=== PATIENT | female | born 1945 | race Caucasian/White ===

== ENCOUNTER → 2024-09-29 | Outpatient (CLI) | payer MEDICARE, BC, SELFPAY ==
--- NOTE | 2024-09-29 17:00 | XR_ITS ---
Examination: CT chest, without intravenous contrast. Sagittal and coronal 2-D reconstructions. Exam date and time: September 29, 2024, 1717 hours Comparison October 16, 2022 INDICATIONS: Wedge-shaped parenchymal disease in the right upper lobe contiguous with the right mediastinum, measuring at least 5 cm in dimension on CT chest October 16, 2022 CTDI:vol (mGy) 4.77 DLP: (mGycm) 109 Technique: Multiple 3.0 mm axial sections of the chest to been obtained. Bone and lung density settings are obtained. Sagittal and coronal 2-D reconstructions have been obtained. Low dose protocols were performed. One or more of the following dose reduction techniques were used; automated exposure control, adjustment of the mA and/or KV according to patient size, use of iterative reconstruction technique. Findings: Bilateral thyroid nodules, the largest on the right 10 mm No thoracic aortic aneurysm dilatation Pulmonary artery segments are nonenlarged No interval paratracheal tracheobronchial bronchopulmonary adenopathy Extensive wedge-shaped scarring in the right upper lobe is stable Bilateral pulmonary nodules again noted New 2 mm pulmonary nodule anterior segment left upper lobe image 104 No visualized liver or splenic lesion No pancreatic mass Partial visualization 3.4 cm left renal cyst IMPRESSION: Stable wedge-shaped scarring in the right upper lobe New 2 mm pulmonary nodule anterior segment left upper lobe, suggests continued 6 month follow-up CT chest without contrast
== END | disposition home or self-care (01) ==
LOC: CCTX 16:44
PROVIDERS: PCP Physician Assistant; Referring Provider Physician Assistant; Visit Provider Physician Assistant
DX: R91.8 Other nonspecific abnormal finding of lung field (principal); C34.90 Malignant neoplasm of unspecified part of unspecified bronchus or lung
CPT/HCPCS: 71250

== ENCOUNTER → 2025-03-23 | Outpatient (CLI) | payer MEDICARE, BC, SELFPAY ==
--- NOTE | 2025-03-23 09:30 | XR_ITS ---
Examination: CT chest, without intravenous contrast. Sagittal and coronal 2-D reconstructions. Exam date and time: March 23, 2025, 0912 hours INDICATIONS: Diagnosis COPD, wedge-shaped parenchymal disease in the right upper lobe, new 2 mm pulmonary nodule in the left upper lobe on CT chest September 29, 2024 CTDI:vol (mGy) 4.99 DLP: (mGycm) 199 Technique: Multiple 3.0 mm axial sections of the chest to been obtained. Bone and lung density settings are obtained. Sagittal and coronal 2-D reconstructions have been obtained. Low dose protocols were performed. One or more of the following dose reduction techniques were used; automated exposure control, adjustment of the mA and/or KV according to patient size, use of iterative reconstruction technique. Findings: 8 mm right thyroid nodule Thoracic aortic calcification no aneurysmal dilatation Right hilar adenopathy on this noncontrast study Pulmonary artery segments are not enlarged COPD with areas of airspace distraction Stable parenchymal disease in the posterior right upper lobe Stable bilateral pulmonary nodules No new pulmonary nodules No visualized liver or splenic lesion Probable parapelvic left renal cyst, recommend renal sonography follow-up IMPRESSION: COPD Suspicious for right hilar adenopathy, consider repeat CT chest post intravenous contrast Stable bilateral pulmonary nodules
== END | disposition home or self-care (01) ==
PROVIDERS: PCP Physician Assistant; Referring Provider Specialist; Visit Provider Specialist
DX: R91.8 Other nonspecific abnormal finding of lung field (principal); J44.9 Chronic obstructive pulmonary disease, unspecified
CPT/HCPCS: 71250

== ENCOUNTER 2025-04-07 17:46 | Emergency (ER) | payer MEDICARE, BC, SELFPAY ==
[2025-04-07 17:46] VITALS: BMI 16.9
[2025-04-07 18:04] VITALS: BP 116/59; PULSE 83; RESP 18; TEMP 37.3; O2SAT 98
--- NOTE | 2025-04-07 18:47 | XR_ITS ---
EXAMINATION: AP chest single view TECHNIQUE: AP upright portable chest single view Date and time: April 07, 2025, 1906 hours, comparison December 16, 2023 INDICATIONS: Coughing shortness of breath beginning 2 days ago FINDINGS: COPD with prominent hyperexpansion Normal heart size Prominent right hilum Parenchymal disease in the right upper lobe which is likely scar formation IMPRESSION: COPD with significant hyperexpansion Parenchymal disease in the right upper lobe extending to the right hilar region which may be scarring versus atelectasis Recommend repeat CT chest with contrast to exclude an underlying right mediastinal lymphadenopathy producing atelectasis in the right upper lobe
--- NOTE | 2025-04-07 18:49 | XR_ITS ---
Examination: CT left hip, without contrast. CT pelvis without intravenous contrast 2-D sagittal reconstructions. 2-D coronal reconstructions. 3-D reconstructions. Date and time of exam: April 07, 2025, 1953 hours INDICATIONS: Onset left hip pain today CTDI: vol (mGy): 5.30 DLP: (mGycm): 191 Technique: Multiple 1.25 mm axial sections of the pelvis left hip have been obtained. 2-D sagittal and coronal reconstructions have been obtained. 3-D reconstructions have been obtained. Low dose protocols were performed. One or more of the following dose reduction techniques were used; automated exposure control, adjustment of the mA and/or KV according to patient size, use of iterative reconstruction technique. Findings: Significant osteopenia Mild narrowing hip joints bilaterally No right or left hip fracture or dislocation Subtle areas of sclerosis in bones of the pelvis and hips 2 mm right renal calculus No bowel obstruction Normal appendix Contracted urinary bladder IMPRESSION: Subtle areas of sclerosis involving the hips and pelvis Consider MRI pelvis follow-up pre and postcontrast to exclude osseous metastatic disease
--- NOTE | 2025-04-07 19:06 | PD.EDHIP ---
Lower Extremity Injury RME/HPI General Chief Complaint: Hip Injury/Pain Stated Complaint: left hip pain Time Seen by Provider: 04/07/25 18:47 Arrival date/time: 04/07/25 17:46 RME / HPI RME / HPI Narrative: Dr. Bardales?s Main ED Evaluation: 79yo female with a history of COPD on nocturnal oxygen, previous lung CA s/p chemotherapy and radiation in remission presenting with productive cough with green phlegm. No fever, chills, or diarrhea. Also noted marked left hip pain with weight bearing for one day in the absence of trauma or strenuous activity. PSH noncontributory. Related Data Home Medications ?Medication ?Instructions ?Recorded ?Confirmed albuterol sulfate 2.5 mg/3 mL 2.5 mg inhalation Q4H 10/16/22 10/16/22 (0.083 %) solution for nebulization ipratropium bromide 0.02 % 0.5 mg inhalation Q5H 10/16/22 10/16/22 solution for inhalation Previous Rx's ?Medication ?Instructions ?Recorded hydrocodone 5 mg-acetaminophen 325 1 tab PO Q8H PRN pain #20 tabs 04/07/25 mg tablet levofloxacin 500 mg tablet 500 mg PO Q24H #10 tabs 04/07/25 prednisone 20 mg tablet 40 mg PO QDAY 5 days #10 tabs 04/07/25 Allergies Allergy/AdvReac Type Severity Reaction Status Date / Time No Known Allergies Allergy Verified 04/07/25 17:50 Review of Systems Review of Systems Systems Reviewed: All systems reviewed, normal except as documented Past Medical History Past Medical History NEUROLOGIC: Negative Neurological Disorders CARDIAC: Positive Cardiac Disorders, Angina, Hypercholesterolemia and Edema; Negative Congestive Heart Failure RESPIRATORY: Positive Chronic Obstructive Pulmonary Disease (COPD), Asthma and Pneumonia GASTROINTESTINAL: Negative Gastrointestinal Disorders GENITOURINARY: Positive Renal Disease; Negative Genitourinary Disorders REPRODUCTIVE: Positive Previous Pregnancies (a2) MUSCULOSKELETAL: Positive Musculoskeletal Disorders (torn tendon right shoulder), Arthritis and Fibromyalgia ENT: Positive Deafness (left) ENDOCRINE: Negative Endocrine Disorders, Diabetes Mellitus Type 1 or Diabetes Mellitus Type 2 HEMATOLOGIC: Positive Blood Disorders and Anemia; Negative Sickle Cell Disease PSYCHO/SOCIAL: Positive Anxiety OTHER HISTORY: Positive Chemotherapy, Radiation Therapy, Chicken Pox, Measles and Cancer; Negative Autoimmune Disease Family History FAMILY HISTORY: Positive Family Respiratory Disorders (brother lung ca), Family Cardiac Disorders (parents and brothers CO), Family Gastrointestinal Problems (brother hep B) and Family Cancer (brother lung ca); Negative Family Psychiatric Problems, Family Surgery or Family Anesthesia Reaction Surgical History SURGICAL: Positive Cardiac Catheterization, Angiogram, Tonsillectomy and Adenoidectomy Social History SMOKING STATUS: Current some day smoker ED Exam Narrative Physical exam: GENERAL APPEARANCE: alert and oriented x 4, well-developed, well-nourished, nontoxic, complains of left hip pain, no acute distress VITALS: All vitals were reviewed and the pulse ox is 98% on room air, which is normal according to my interpretation. HEENT: Normocephalic, atraumatic; pupils equal, round, reactive to light; EOMI; mucous membranes pink, moist; oropharynx clear NECK: Supple LUNGS: Diminished lung sounds; no wheezes, no rales, no rhonchi HEART: Regular rate, regular rhythm; normal S1, S2; no murmurs ABDOMEN: non distended; normal BS; soft, no tenderness, no guarding, no rebound; no masses, no organomegaly, no hernia BACK: no CVA tenderness EXTREMITIES: atraumatic; no edema; minimal pain with internal/external rotation or axial loading, tenderness to the left greater trochanter region, no crepitus NEUROLOGIC: awake; alert and oriented x4; cranial nerves II-XII grossly intact; no focal sensory or motor deficits PSYCHIATRIC: appropriate mood and affect SKIN: warm, dry, normal color; no rashes Course Quality Measures none Orders Category Date Time Status CT hip LT wo con Stat Exams 04/07/25 18:49 Completed XR chest 1V portable Stat Exams 04/07/25 18:47 Completed CBC [CBC] Stat Lab 04/07/25 19:15 Completed CMP [Comprehensive Metabolic Panel] Stat Lab 04/07/25 19:15 Completed Urinalysis, C/S if Indicated Stat Lab 04/07/25 18:58 Completed Albuterol/Ipratr Rt Bouchra [Duoneb Rt Bouchra] Med 04/07/25 18:47 Discontinued 3 ml INH X1 ONE HYDROcodone*/APAP 5/325 [Eloy 5/325] Med 04/07/25 18:49 Discontinued 1 tab PO X1 ONE Vital Signs Vital signs: Vital Signs Temperature 99.1 F 04/07/25 18:04 Pulse Rate 83 04/07/25 18:04 Respiratory Rate 18 04/07/25 18:04 Blood Pressure 116/59 L 04/07/25 18:04 Pulse Oximetry (%) 98 04/07/25 18:04 Oxygen Delivery Method Room Air 04/07/25 18:04 Extremity Injury, Lower MDM Narrative MDM Narrative:: Scribe Attestation: 04/07/25 - Taya Meraz am scribing for and in the presence of Dr. Bardales. 79yo female with a history of COPD on nocturnal oxygen, previous lung CA s/p chemotherapy and radiation in remission presenting with productive cough with green phlegm. No fever, chills, or diarrhea. Also noted marked left hip pain with weight bearing for one day in the absence of trauma or strenuous activity. Please see PE findings. Lab markers demonstrate normal CBC. Chemistries with mild renal insufficiency. UA negative. CXR demonstrates COPD-like changes without definite infiltrate. CT of the hip failed to demonstrate evidence of acute fracture, but showed sclerosis of hips and pelvis suggestive of metastatic disease which may reflect recurrent lung CA. Discussed results at length with patient and recommendations included outpatient therapy for COPD exacerbation and MRI follow-up in the next 1-2 weeks. Patient advised to use a walker versus cane and avoid direct weight bearing. Precaution instructions issued. Dx; COPD exacerbation, left hip pain, left hip arthritis Patient data External records reviewed:: [facility] previous records (Per chart review, patient has no previous ED visits or admissions to this facility.) Clinical information provided by:: patient Social determinants that could affect healthcare access:: none Patient has the following chronic illnesses:: HLD, asthma How is presenting disease/condition affected by chronic disease/condition?: uneffected by Evaluation data The following diagnostics were reviewed and interpreted by me:: lab results and radiology exam(s) Lab and/or radiology exams considered but not ordered:: none Interpretation Summary: [facility] Signed Patient: THANH GARCIA. Record#: [id number] Birthdate: 1945 Age/Sex: 79 / F Location: [facility] Attending Dr: Ordering Physician: Zaid Blair DO Date of Service: 04/07/25 Procedure(s): XR chest 1V portable Accession Number(s): [id number] cc: Zaid Blair DO; Trung Barr MD~ EXAMINATION: AP chest single view TECHNIQUE: AP upright portable chest single view Date and time: April 07, 2025, 1906 hours, comparison December 16, 2023 INDICATIONS: Coughing shortness of breath beginning 2 days ago FINDINGS: COPD with prominent hyperexpansion Normal heart size Prominent right hilum Parenchymal disease in the right upper lobe which is likely scar formation IMPRESSION: COPD with significant hyperexpansion Parenchymal disease in the right upper lobe extending to the right hilar region which may be scarring versus atelectasis Recommend repeat CT chest with contrast to exclude an underlying right mediastinal lymphadenopathy producing atelectasis in the right upper lobe Dictated By: Trung Barr MD Signed By: <Electronically signed by Trung Barr MD in > 04/07/251933 [facility] Report Signed Patient: THANH GARCIA. Record#: [id number] Birthdate: 1945 Age/Sex: 79 / F [facility] Attending Dr: Ordering Physician: Zaid Blair DO Date of Service: 04/07/25 Procedure(s): CT hip LT wo con Accession Number(s): [id number] cc: Zaid Blair DO; Trung Barr MD; Eunice Callaway PA-C~ Examination: CT left hip, without contrast. CT pelvis without intravenous contrast 2-D sagittal reconstructions. 2-D coronal reconstructions. 3-D reconstructions. Date and time of exam: April 07, 2025, 1954 hours INDICATIONS: Onset left hip pain today CTDI: vol (mGy): 5.30 DLP: (mGycm): 191 Technique: Multiple 1.25 mm axial sections of the pelvis left hip have been obtained. 2-D sagittal and coronal reconstructions have been obtained. 3-D reconstructions have been obtained. Low dose protocols were performed. One or more of the following dose reduction techniques were used; automated exposure control, adjustment of the mA and/or KV according to patient size, use of iterative reconstruction technique. Findings: Significant osteopenia Mild narrowing hip joints bilaterally No right or left hip fracture or dislocation Subtle areas of sclerosis in bones of the pelvis and hips 2 mm right renal calculus No bowel obstruction Normal appendix Contracted urinary bladder IMPRESSION: Subtle areas of sclerosis involving the hips and pelvis Consider MRI pelvis follow-up pre and postcontrast to exclude osseous metastatic disease Dictated By: Trung Barr MD Signed By: <Electronically signed by Trung Barr MD in [place]> 04/07/25 2110 Medications / Prescriptions Medications or Prescriptions considered but not ordered:: none Medication administrations:: Medication Administration History Discontinued Medications Hydrocodone Bitart/Acetaminophen (Hydrocodone/Apap 5/325 Tablet) 1 tab PO X1 ONE Stop: 04/07/25 18:50 Last Admin: 04/07/25 19:07 Dose: 1 tab Documented By: EB Albuterol/Ipratropium (Albuterol/Ipratropium (Duoneb) Rt Bouchra 3 Ml Nebu) 3 ml INH X1 ONE Stop: 04/07/25 18:48 Last Admin: 04/07/25 19:27 Dose: 3 ml Documented By: MW see above Consultations Consultation(s) initiated? (list below): No Diagnosis Extremity Injury, Lower Differential Diagnosis: fracture of hip and other (musculoskeletal pain, bronchitis, pneumonia) Most likely diagnosis given after review of the tests above:: see clinical impression below Admission Indicated Admission indicated?: not indicated Admission Request Was there a request for admission?: No Disposition Plan Disposition Plan: Discharge Discharge Attestation Discharge Attestation: The patient and all family members were given an opportunity to ask questions and understood the discharge instructions. Discharge instructions specifically effects, indications for sooner follow up or return to the emergency department, and the expected course of current diagnosis. Patient condition: Stable Discharge Plan Plan Patient Disposition: HOME (Self Care) Discharge Disposition comment: Stable Prescriptions/Referrals Prescriptions/Med Rec: New hydrocodone-acetaminophen 5-325 mg tablet 1 tab PO Q8H MDD 3 TAB PRN (Reason: pain) Qty: 20 0RF prednisone 20 mg tablet 40 mg PO QDAY 5 Days Qty: 10 0RF Taper: Prednisone Taper 40 mg DAILY for 5 Days and 0 Hour levofloxacin 500 mg tablet 500 mg PO Q24H Qty: 10 0RF No Action albuterol sulfate 2.5 mg /3 mL (0.083 %) Solution For Nebulization 2.5 mg INHALATION Q4H Rx Instructions: [id number] ipratropium bromide 0.02 % Solution 0.5 mg INHALATION Q5H Rx Instructions: q5 hrs mixed with albuterol Referrals: Eunice Callaway PA-C [Primary Care Provider, [facility]] - In 1 week Problem List Clinical Impression: Acute exacerbation of chronic obstructive pulmonary disease, Arthritis of left hip Patient/Caregiver Discharge Instructions Discharge Activity: walk with walker only and activity as tolerated Education Materials: Arthritis: Exercise, COPD Meds Additional Instructions: Ice compresses alternate with warm moist heat to the left hip. Home nebulizer every 4 hours while awake. Additional medications as directed. Follow-up with primary care for referral for MRI of the pelvis/hips to rule out neoplastic process. Return if worsening. Print Language: Slovak Stand Alone Forms: [facility] Award Info., Patient Portal Info Letter
[2025-04-07] MEDS: HYDROcodone/APAP 5/325 TABLET 1 TAB PO (19:07)
[2025-04-07 19:24] LABS: Collection Type, Urine Clean Catch
[2025-04-07] MEDS: ALBUTEROL/IPRATROPIUM (Duoneb) RT SOL 3 ML NEBU INH (19:27)
[2025-04-07 19:29] VITALS: PULSE 85; RESP 20; O2SAT 99
[2025-04-07 19:31] LABS: Bilirubin,Urine Negative (Negative); Blood,Urine Trace (Negative); Clarity,Urine Clear (Clear/Hazy); Color,Urine Colorless (Lt Yel-Yel); Culture Indicated,Urine Not Indicated; Glucose, Urine Negative (Negative); Ketones,Urine Trace (Negative); Leukocyte Esterase,Urine Negative (Negative); Nitrite,Urine Negative (Negative); PH,Urine 6.5 (5.0-7.0); Protein,Urine Negative (Neg - Trace); RBC,Urine 1 /hpf (0-3); Specific Gravity,Urine 1.007 (1.001-1.035); Squamous Epithelial Cell,Urine 2 /hpf (0-5); Urobilinogen,Urine Negative mg/dL (0.0-1.0); WBC,Urine 1 /hpf (0-5)
[2025-04-07 19:33] LABS: Basophils # (Auto) 0.0 Thou/mm3 (0.0-0.2); Basophils % (Auto) 0 % (0-2.5); Eosinophils # (Auto) 0.0 Thou/mm3 (0.0-0.5); Eosinophils % (Auto) 0 % (0-10); Hematocrit 37.1 % (36.0-46.0); Hemoglobin 12.2 g/dL (12.0-16.0); Immature Granulocytes Auto 0.03 Thou/mm3 (0.00-0.00); Lymphocytes # (Auto) 1.0 Thou/mm3 (1.0-4.8); Lymphocytes % (Auto) 12 % (10-50); Mean Corpuscular HGB Conc 32.9 g/dl (31.0-37.0); Mean Corpuscular Hemoglobin 31.4 pg (25.0-35.0); Mean Corpuscular Volume 95 fL (80-100); Monocytes # (Auto) 0.8 Thou/mm3 (0.0-0.8); Monocytes % (Auto) 9 % (0-12); Neutrophils # (Auto) 6.8 Thou/mm3 (1.8-7.7); Neutrophils % (Auto) 79 % (37-80); Nucleated Red Blood Cell # 0.00 Thou/mm3 (0.00-0.00); Nucleated Red Blood Cell % 0 /100 WBC (0); Platelet Count 197 Thou/mm3 (140-440); RDW Standard Deviation 54.8 fL (36.4-46.3); Red Blood Count 3.89 Miln/mm3 (4.00-5.20); White Blood Count 8.7 Thou/mm3 (3.6-11.0)
[2025-04-07 19:43] LABS: Alanine Aminotransferase 19 U/L (10-49); Albumin, Serum 4.7 gm/dL (3.4-4.8); Albumin/Globulin Ratio 1.7 (1.2-2.2); Alkaline Phosphatase 78 U/L (46-116); Anion Gap 9 (7-16); Aspartate Amino Transferase 21 U/L (0-34); BUN/Creatinine Ratio 19 Ratio (12-20); Bilirubin,Total 0.5 mg/dL (0.3-1.2); Blood Urea Nitrogen 17 mg/dL (9-23); Calcium 9.3 mg/dL (8.3-10.6); Calcium (Corrected) 9.3 mg/dL (8.5-10.1); Carbon Dioxide 28.5 mMol/L (20.0-31.0); Chloride 107 mMol/L (98-107); Creatinine (Component) 0.9 mg/dL (0.6-1.3); Estimated Creatinine Clearance 38.1 mL/min (>60); Globulin 2.7 gm/dL (2.3-3.5); Glucose 100 mg/dL (74-106); Osmolality,Calculated 288 (275-295); Potassium 4.3 mMol/L (3.4-5.1); Sodium 144 mMol/L (136-145); Total Protein 7.4 gm/dL (5.7-8.2); eGFR > 60 See Note
--- NOTE | 2025-04-08 00:39 | PC.NURSE ---
CALLED PATIENT IN THE LOBBY NO ANSWER RECIEVED.
--- NOTE | 2025-04-08 00:57 | PC.NURSE ---
PATIENT LEFT WITHOUT DISCHARGE PAPERWORK.
== END 2025-04-08 00:59 | disposition home or self-care (01) ==
PROVIDERS: Emergency Provider Emergency Medicine; PCP Physician Assistant
DX: J44.1 Chronic obstructive pulmonary disease with (acute) exacerbation (principal); M16.12 Unilateral primary osteoarthritis, left hip; M89.8X0 Other specified disorders of bone, multiple sites; F17.210 Nicotine dependence, cigarettes, uncomplicated
CPT/HCPCS: 36415; 71045; 73700; 80053; 81001; 85025; 94640; 99284; A9270

== ENCOUNTER 2025-04-14 10:14 | Emergency (ER) | payer MEDICARE, BC, SELFPAY ==
[2025-04-14 10:25] VITALS: BP 153/70; PULSE 76; RESP 19; TEMP 37; O2SAT 93
[2025-04-14 10:31] VITALS: PULSE 76; O2SAT 93; BMI 16.9
--- NOTE | 2025-04-14 11:21 | PD.EDRME ---
Rapid Medical Screening Exam RME Arrival date/time: 04/14/25 10:14 Time Seen by Provider: 04/14/25 11:13 Vital signs: Vital Signs Temperature 98.6 F 04/14/25 10:25 Pulse Rate 76 04/14/25 10:25 Respiratory Rate 19 04/14/25 10:25 Blood Pressure 153/70 H 04/14/25 10:25 Pulse Oximetry (%) 93 L 04/14/25 10:25 Oxygen Delivery Method Room Air 04/14/25 10:25 RME Narrative: 79-year-old female presents to the ER complaining of migrating left leg pain which started in her hip however now it is extending to her lower leg after being seen here about a week ago placed on steroids and antibiotics which she reports improvement of her shortness of breath however the leg pain has continued to worsen. Denies fever, trauma. Patient states she is able to hobble around her house. I briefly performed a screening evaluation to initiate work-up and expedite care. Complete history, physical exam, and plan of care is deferred to the provider in the main ED. Exam: Head: Normocephalic, atraumatic. Respiratory: Normal effort. No respiratory distress or accessory muscle use. Neuro: Speech normal. Skin: Warm, dry, normal color. Psych: Pleasant. Normal affect. Cooperative. Clinical Impression: Left leg pain of unclear etiology
--- NOTE | 2025-04-14 11:23 | XR_ITS ---
Examination: Duplex scan of the lower extremity, unilateral left Date and time of exam: 04/14/2025 at 11:46 a.m. CLINICAL INDICATION: Left lower extremity pain and warmth, rule out DVT Technique: Duplex scan of the extremity veins using B-mode/grayscale imaging and Doppler spectral analysis and color flow Attention is directed to internal echogenicity, compression and augmentation involving these veins, color flow assessment, spectral analysis Findings: Major deep venous structures in the extremity demonstrate normal course and caliber. There is no evidence of deep vein thrombosis. Normal color flow and spectral analysis There is normal compressibility seen involving the entire deep venous system left lower extremity. There is also normal augmentation in most all of the left lower extremity veins, however when the technologist attempted to perform augmentation on the left common femoral vein and greater saphenous vein, the patient refused and then would not let the technologist finish the exam. Impression: Negative for DVT.. 2. Near the end of the exam the patient refused to cooperate and then would not let the technologist finish the exam completely however I would estimate that at least 95% of the exam was performed, and entirely normal.
--- NOTE | 2025-04-14 11:30 | XR_ITS ---
Examination: CT lumbar spine, without contrast. 2-D sagittal reconstructions. 2-D coronal reconstructions. 3-D reconstructions. Date and time of exam: April 14, 2025, 1213 hours INDICATIONS: Back pain radiating down the left leg beginning 2 days ago CTDI: vol (mGy): 11.8 DLP: (mGycm): 301 Technique: Multiple 1.25 mm axial sections of the lumbar spine without intravenous contrast have been obtained. 2-D sagittal and coronal reconstructions have been obtained. 3-D reconstructions have been obtained. Low dose protocols were performed. One or more of the following dose reduction techniques were used; automated exposure control, adjustment of the mA and/or KV according to patient size, use of iterative reconstruction technique. Findings: Severe osteopenia Mixed subtle sclerotic areas involving all visualized osseous structures Advanced degenerative disc disease L4-L5 Moderate lumbar spondylosis Lumbar pedicles, laminae, transverse posterior spinous processes intact Incidental note 4 mm soft calcification posterior left kidney and mild to moderate left hydronephrosis L5-S1 no disc protrusion L4-L5 moderate overall spinal stenosis, axial image 80, 4 mm central lumbar disc bulge, facet arthropathy and thickening of ligamentum flavum circumferentially narrowing the thecal sac with moderate left L4 ganglionic compression L4-L5 moderate overall spinal stenosis, 6 mm central lumbar disc bulge, facet arthropathy and thickening ligamentum flavum with mild right L3 ganglionic compression L2-L3 no disc protrusion, small foraminal disc bulges L1-L2 no disc protrusion, small foraminal disc bulges IMPRESSION: L4-L5, L3-L4 moderate overall spinal stenosis as above including moderate left L4 mild right L3 ganglionic compression
[2025-04-14 11:42] LABS: Basophils # (Auto) 0.0 Thou/mm3 (0.0-0.2); Basophils % (Auto) 0 % (0-2.5); Eosinophils # (Auto) 0.2 Thou/mm3 (0.0-0.5); Eosinophils % (Auto) 3 % (0-10); Hematocrit 37.6 % (36.0-46.0); Hemoglobin 12.6 g/dL (12.0-16.0); Immature Granulocytes Auto 0.02 Thou/mm3 (0.00-0.00); Lymphocytes # (Auto) 1.2 Thou/mm3 (1.0-4.8); Lymphocytes % (Auto) 15 % (10-50); Mean Corpuscular HGB Conc 33.5 g/dl (31.0-37.0); Mean Corpuscular Hemoglobin 31.4 pg (25.0-35.0); Mean Corpuscular Volume 94 fL (80-100); Monocytes # (Auto) 0.6 Thou/mm3 (0.0-0.8); Monocytes % (Auto) 7 % (0-12); Neutrophils # (Auto) 5.9 Thou/mm3 (1.8-7.7); Neutrophils % (Auto) 75 % (37-80); Nucleated Red Blood Cell # 0.00 Thou/mm3 (0.00-0.00); Nucleated Red Blood Cell % 0 /100 WBC (0); Platelet Count 264 Thou/mm3 (140-440); RDW Standard Deviation 53.0 fL (36.4-46.3); Red Blood Count 4.01 Miln/mm3 (4.00-5.20); White Blood Count 7.9 Thou/mm3 (3.6-11.0)
--- NOTE | 2025-04-14 12:17 | PD.EDADULT ---
ED General RME/HPI General Stated complaint: LEG PAIN Time Seen by Provider: 04/14/25 11:13 Arrival date/time: 04/14/25 10:14 RME / HPI RME / HPI narrative: 79-year-old female presents to the ER complaining of migrating left leg pain which started in her hip however now it is extending to her lower leg after being seen here about a week ago placed on steroids and antibiotics which she reports improvement of her shortness of breath however the leg pain has continued to worsen. Denies fever, trauma. Patient states she is able to hobble around her house. I briefly performed a screening evaluation to initiate work-up and expedite care. Complete history, physical exam, and plan of care is deferred to the provider in the main ED. Exam: Head: Normocephalic, atraumatic. Respiratory: Normal effort. No respiratory distress or accessory muscle use. Neuro: Speech normal. Skin: Warm, dry, normal color. Psych: Pleasant. Normal affect. Cooperative. Impression: Left leg pain of unclear etiology Related Data Home Medications ?Medication ?Instructions ?Recorded ?Confirmed albuterol sulfate 2.5 mg/3 mL 2.5 mg inhalation Q4H 10/16/22 10/16/22 (0.083 %) solution for nebulization ipratropium bromide 0.02 % 0.5 mg inhalation Q5H 10/16/22 10/16/22 solution for inhalation Previous Rx's ?Medication ?Instructions ?Recorded hydrocodone 5 mg-acetaminophen 325 1 tab PO Q8H PRN pain #20 tabs 04/07/25 mg tablet levofloxacin 500 mg tablet 500 mg PO Q24H #10 tabs 04/07/25 gabapentin 100 mg capsule 100 mg PO BID 1 week #14 caps 04/14/25 Allergies Allergy/AdvReac Type Severity Reaction Status Date / Time No Known Allergies Allergy Verified 04/14/25 10:31 ED Exam Narrative Physical exam: Physical Exam: GENERAL: Awake, answering questions appropriately, appears stated age HEENT: NC/AT. Moist mucosa. PERRLA/EOMI. CARDIO: Heart RRR, no obvious murmurs, no JVD. PULM: No coughing or visible SOB. Lungs CTA B/L. GI: Abdomen soft, NT/ND, +BS. SKIN/MSK/EXT: Left lower extremity has discoloration of the distal left, phalanges. No wounds/rashes/edema/amputations noted. +1 Pedal pulses present on the left compared to +2 on the right. NEURO: Oriented x3, Moves extremities x4, no focal neurologic deficits noted. Course Quality Measures none Orders Category Date Time Status CT lumbar spine wo con Stat Exams 04/14/25 11:30 Completed US venous duplex LE LT Stat Exams 04/14/25 11:23 Completed CBC Stat Lab 04/14/25 11:31 Completed CMP [Comprehensive Metabolic Panel] Stat Lab 04/14/25 12:04 Completed HYDROcodone/APAP 10/325 [[place] 10/325] Med 04/14/25 11:30 Discontinued 1 tab PO X1 ONE Ondansetron Odt [Zofran Odt] Med 04/14/25 11:31 Discontinued 4 mg PO X1 ONE Vital Signs Vital signs: Vital Signs Temperature 98.6 F 04/14/25 10:25 Pulse Rate 76 04/14/25 10:25 Respiratory Rate 19 04/14/25 10:25 Blood Pressure 153/70 H 04/14/25 10:25 Pulse Oximetry (%) 93 L 04/14/25 10:25 Oxygen Delivery Method Room Air 04/14/25 10:25 Discharge Plan Plan Patient Disposition: HOME (Self Care) Patient condition on transfer: Stable Prescriptions/Referrals Prescriptions/Med Rec: New gabapentin 100 mg capsule 100 mg PO BID 7 Days Qty: 14 0RF No Action hydrocodone-acetaminophen 5-325 mg tablet 1 tab PO Q8H MDD 3 TAB PRN (Reason: pain) Qty: 20 0RF levofloxacin 500 mg tablet 500 mg PO Q24H Qty: 10 0RF albuterol sulfate 2.5 mg /3 mL (0.083 %) Solution For Nebulization 2.5 mg INHALATION Q4H Rx Instructions: [id number] ipratropium bromide 0.02 % Solution 0.5 mg INHALATION Q5H Rx Instructions: q5 hrs mixed with albuterol Problem List Clinical Impression: Lumbar radiculopathy Patient/Caregiver Discharge Instructions Education Materials: Sciatica Additional Instructions: Please take gabapentin 100mg by mouth twice a day for lumbar radiculopathy Follow-up with your PCP within 5 days - ask for a cardiology referral due to your peripheral artery disease Print Language: Estonian Stand Alone Forms: [employer] Award Info., Patient Portal Info Letter MDM Narrative [facility] hospital course (for use when minimal MDM required): HPI: 79-year-old female with past medical history of COPD, spinal stenosis, lumbar radiculopathy, peripheral artery disease presenting to the ED on 04/14 for left hip and fibular area tenderness. She denies having any traumatic events or falls and was recently in the emergency room for shortness of breath, breathing treatments and prednisone and largely improved. Patient denies having any respiratory symptoms at this time. She states that her left lower extremity has felt more swollen than normal but denies having any redness. 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 She denies having any pain when ambulating; she uses a walking stick when ambulating at home. On examination please refer to the physical exam above; patient presented hypertensive 150/70, heart rate of 76, respiratory rate of 19, afebrile satting 93 on room air. Pertinent lab findings included CBC without any acute findings, CMP did show mild hyponatremia sodium 147, venous duplex is negative for any DVT and lumbar spine CT shows L4-L5, L3-L4 spinal stenosis with some ganglionic compression. #Spinal stenosis with lumbar neuropathy, radiculopathy #History of peripheral artery disease As noted above in HPI, and findings regarding extensive workup including ultrasound anterior lower extremities, CT scan of the lumbar spine Plan: Will discharge patient with the following instructions Please take gabapentin 100mg by mouth twice a day for lumbar radiculopathy Follow-up with your PCP within 5 days - ask for a cardiology referral due to your peripheral artery disease Patient seen and assessed with attending Dr. Abdulkadir Haro, DO PGY-2 Internal Medicine - [facility] Medication Administration(s) Medication Administration History Discontinued Medications Hydrocodone Bitart/Acetaminophen (Hydrocodone/Apap 10/325 Tab) 1 tab PO X1 ONE Stop: 04/14/25 11:31 Last Admin: 04/14/25 13:24 Dose: 1 tab Documented By: PEGGY Ondansetron HCl (Ondansetron Odt 4 Mg Tabrap) 4 mg PO X1 ONE; Protocol Stop: 04/14/25 11:32 Last Admin: 04/14/25 13:25 Dose: 4 mg Documented By: PEGGY
[2025-04-14 12:55] LABS: Alanine Aminotransferase 30 U/L (10-49); Albumin, Serum 4.7 gm/dL (3.4-4.8); Albumin/Globulin Ratio 1.8 (1.2-2.2); Alkaline Phosphatase 74 U/L (46-116); Anion Gap 11 (7-16); Aspartate Amino Transferase 24 U/L (0-34); BUN/Creatinine Ratio 18 Ratio (12-20); Bilirubin,Total 0.4 mg/dL (0.3-1.2); Blood Urea Nitrogen 16 mg/dL (9-23); Calcium 9.8 mg/dL (8.3-10.6); Calcium (Corrected) 9.8 mg/dL (8.5-10.1); Carbon Dioxide 29.1 mMol/L (20.0-31.0); Chloride 107 mMol/L (98-107); Creatinine (Component) 0.9 mg/dL (0.6-1.3); Estimated Creatinine Clearance 38.1 mL/min (>60); Globulin 2.6 gm/dL (2.3-3.5); Glucose 81 mg/dL (74-106); Osmolality,Calculated 292 (275-295); Potassium 4.4 mMol/L (3.4-5.1); Sodium 147 mMol/L (136-145); Total Protein 7.3 gm/dL (5.7-8.2); eGFR > 60 See Note
[2025-04-14] MEDS: ONDANSETRON ODT 4 MG TABRAP PO (13:25)
--- NOTE | 2025-04-14 14:21 | PC.ADMIT ---
CLEANER WALL/Staff Electrical Engineer received a call from the nurse expressing concerns regarding the patient's hesitancy about feeling safe at home. CLEANER WALL me with patient, who reports that her has a bad tempter and that she can be boisterous at times. CLEANER WALL engaged the patient in further assessment to explore safety and support needs. CLEANER WALL discussed the option of engaging in therapy and supportive services. Patient reported that she feels she would be more prepared to speak with someone at the start of the year. CLEANER WALL advised the patient to contact her PCP (Primary care provider) if symptoms of depression, anxiety, or feeling overwhelmed persist, in order to obtain a referral for therapy services. CLEANER WALL encouraged the patient to reach out to supportive family members and to seek additional help if she feels unable to cope. CLEANER WALL and team reviewed safety and confirmed that the patient currently reports feeling able to return home. Patient reports no abuse or neglect in the home. Patient will provide transportation.
== END 2025-04-14 16:19 | disposition home or self-care (01) ==
LOC: SERX 13:05
PROVIDERS: Physician Assistant; Emergency Provider Family Medicine; PCP Physician Assistant
DX: M48.061 Spinal stenosis, lumbar region without neurogenic claudication (principal); M54.16 Radiculopathy, lumbar region; M79.662 Pain in left lower leg
CPT/HCPCS: 36415; 72131; 80053; 85025; 93971; 99283; Q0162; A9270